=== PATIENT | female | born 1945 | race Caucasian/White ===

== ENCOUNTER → 2022-09-02 11:48 | Outpatient (CLI) | payer MEDICARE, OTHER, SELFPAY ==
--- NOTE | 2022-09-02 11:54 | DI.RAD.S_ITS ---
PROCEDURE: XR ANKLE RT MIN 3V INDICATIONS: RIGHT ANKLE PAIN TECHNIQUE: 3 views of the ankle were acquired. COMPARISON: None. FINDINGS: Bones: Soto B fracture of the distal fibula. Ankle mortise is normally aligned. No suspicious bony lesions. Soft tissues: No tibiotalar joint effusion. Achilles tendon appears normal. Lateral soft tissue swelling is noted and ligamentous injury cannot be excluded. IMPRESSION: Mildly displaced fracture of the distal fibula. Dictated by: Caryn Falk MD, PhD on 09/02/2022 at 13:25 Approved by: Caryn Falk MD, PhD on 09/02/2022 at 13:29
== END ==
PROVIDERS: PCP Family Medicine; Referring Provider Registered Nurse; Visit Provider Registered Nurse
DX: S82.831A Other fracture of upper and lower end of right fibula, initial encounter for closed fracture (principal); M25.571 Pain in right ankle and joints of right foot
CPT/HCPCS: 73610